=== PATIENT | female | born 1935 | race African-American/Black ===

== ENCOUNTER 2017-09-22 20:38 | Inpatient (IN) | payer OTHER ==
[~2017-09-22] VITALS: Ht 170.2 cm; Wt 77.1 kg
[2017-09-22] MEDS ORDERED: SODIUM CHLORIDE 0.9% 1,000 ML IV ONE (22:05)
[2017-09-22] MEDS ORDERED: ATOR10TA69 PO (22:20)
[2017-09-22] MEDS ORDERED: LETR2.5T6 PO (22:20)
[2017-09-22] MEDS ORDERED: LEVO50TA8 PO (22:20)
[2017-09-22] MEDS ORDERED: TRAZ-129 PO (22:20)
[2017-09-22] MEDS ORDERED: DONE10TA11 PO (22:20)
[2017-09-22 23:49] LABS: BASOPHILS % 0.4 % (0.0-2.0); EOSINOPHILS % 0.2 % (0.0-5.0); HEMATOCRIT. 40.3 % (36.0-48.0); HEMOGLOBIN. 13.4 g/dL (12.0-16.0); MEAN CORPUSCULAR HEMOGLOBIN 29.8 pg (28.0-32.0); MEAN CORPUSCULAR VOLUME 89.3 fL (81.0-99.0); MEAN PLATELET VOLUME 7.6 fl (7.4-10.4); MONOCYTES % 5.9 % (2.0-8.0); NEUTROPHILS % 81.5 % (40.0-76.0); PLATELET 280 x1000/uL (130-400); RED BLOOD CELL COUNT 4.52 mill/uL (4.2-5.4); RED CELL DISTRIBUTION WIDTH 13.8 % (11.6-14.6)
[2017-09-22 23:51] LABS: CHLORIDE 106 mEq/L (98-107)
[2017-09-22 23:52] LABS: PROTHROMBIN TIME 10.7 sec (9.4-11.6)
[2017-09-22 23:55] LABS: ETHANOL BLOOD < 10 mg/dL
[2017-09-23 03:10] VITALS: BP 131/69
[2017-09-23 04:00] VITALS: BP 130/85
[2017-09-23 07:26] VITALS: BP 160/61
[2017-09-23 10:02] LABS: BASOPHILS % 0.6 % (0.0-2.0); HEMATOCRIT. 43.6 % (36.0-48.0); HEMOGLOBIN. 14.3 g/dL (12.0-16.0); LYMPHOCYTES % 20.2 % (20.0-50.0); MEAN CORPUSCULAR HEMOGLOBIN 29.7 pg (28.0-32.0); MEAN CORPUSCULAR VOLUME 90.5 fL (81.0-99.0); MONOCYTES % 5.1 % (2.0-8.0); NEUTROPHILS % 73.1 % (40.0-76.0); RED BLOOD CELL COUNT 4.81 mill/uL (4.2-5.4)
[2017-09-23 10:22] LABS: CHLORIDE 107 mEq/L (98-107)
[2017-09-23 10:29] LABS: PLATELET 228 x1000/uL (130-400)
[2017-09-23 10:33] LABS: CREATINE KINASE 81 IU/L (26-192)
[2017-09-23 10:34] LABS: CREATINE KINASE MB FRACTION 2.3 ng/mL (0.5-3.6)
[2017-09-23] MEDS ORDERED: AMLODIPINE 5MG TABLET PO SCH (11:30)
[2017-09-23] MEDS ORDERED: DONEPEZIL HCL 10MG TABLET PO SCH (12:00)
[2017-09-23 12:20] VITALS: BP 120/56
[2017-09-23 16:28] VITALS: BP 131/70
[2017-09-23] MEDS ORDERED: TRAZODONE HCL 50MG TABLET PO SCH (17:00)
[2017-09-23 17:56] LABS: CREATINE KINASE 81 IU/L (26-192)
[2017-09-23 17:57] LABS: CREATINE KINASE MB FRACTION 1.6 ng/mL (0.5-3.6)
[2017-09-23 20:00] VITALS: BP 120/52
[2017-09-23] MEDS ORDERED: ATORVASTATIN CALCIUM 10MG TABLET PO SCH (21:00)
[2017-09-24] MEDS ORDERED: LEVOTHYROXINE SODIUM 50MCG TABLET PO SCH (06:45)
== END 2017-09-23 21:43 | disposition short-term general hospital (02) | DRG 74 ==
LOC: ER 20:55 → 5WST 22:08 → EDBEDREQ 23:55 → ENRESERV 09-23 02:06
PROVIDERS: ADMIT Internal Medicine; ATTEND Internal Medicine
DX: G90.8 Other disorders of autonomic nervous system (principal); G30.9 Alzheimer's disease, unspecified; F02.80 Dementia in other diseases classified elsewhere, unspecified severity, without behavioral disturbance, psychotic disturbance, mood disturbance, and anxiety; E03.9 Hypothyroidism, unspecified; E78.00 Pure hypercholesterolemia, unspecified; E78.5 Hyperlipidemia, unspecified; I10 Essential (primary) hypertension; Z90.10 Acquired absence of unspecified breast and nipple; Z79.899 Other long term (current) drug therapy
CPT/HCPCS: 36415; 70450; 71045; 80048; 80053; 80061; 82550; 82553; 83605; 83690; 83735; 83880; 84443; 84484; 85025; 85610; 93005; 93880; 96360; 96361; 97162; 99285; G0482; J7030; A4315

== ENCOUNTER 2018-06-22 20:38 | Inpatient (IN) | payer OTHER ==
[~2018-06-22] VITALS: Ht 160 cm; Wt 58.7 kg
[~2018-06-22 20:38] MED LIST: ATOR10TA69 PO; DONE10TA11 PO; LETR2.5T6 PO; LEVO50TA8 PO; TRAZ-212 PO
[2018-06-22] MEDS ORDERED: SODIUM CHLORIDE 0.9% 500 ML IV ONE (21:38)
[2018-06-22] MEDS ORDERED: HALOPERIDOL LACTATE 5MG/ML VIAL IM ONE (22:45)
[2018-06-22 23:51] LABS: BASOPHILS % 0.3 % (0.0-2.0); EOSINOPHILS % 0.3 % (0.0-5.0); HEMATOCRIT. 42.2 % (36.0-48.0); HEMOGLOBIN. 13.8 g/dL (12.0-16.0); LYMPHOCYTES % 14.5 % (20.0-50.0); MEAN CORPUSCULAR HEMOGLOBIN 29.7 pg (28.0-32.0); MEAN CORPUSCULAR VOLUME 91.1 fL (81.0-99.0); MEAN PLATELET VOLUME 7.5 fl (7.4-10.4); NEUTROPHILS % 76.9 % (40.0-76.0); PLATELET 254 x1000/uL (130-400); RED BLOOD CELL COUNT 4.63 mill/uL (4.2-5.4); RED CELL DISTRIBUTION WIDTH 13.9 % (11.6-14.6)
[2018-06-23] LABS: CHLORIDE 110 mEq/L (98-107)
[2018-06-23 02:30] VITALS: BP 153/84
[2018-06-23] MEDS ORDERED: ACETAMINOPHEN 325MG TABLET PO PRN (02:30)
[2018-06-23] MEDS ORDERED: NA PHOS,M-B/NA PHOS,DI-BA ENEMA 118ML PR PRN (02:30)
[2018-06-23] MEDS ORDERED: DOCUSATE SODIUM 100MG CAPSULE PO PRN (02:30)
[2018-06-23] MEDS ORDERED: CLONIDINE 0.1MG TABLET PO PRN (02:30)
[2018-06-23] MEDS ORDERED: ONDANSETRON HCL 4MG/2ML INJ IV PRN (02:30)
[2018-06-23] MEDS ORDERED: MAGNESIUM/ALUMINUM HYDROXIDE/SIMETHICONE 30ML UDC PO PRN (02:30)
[2018-06-23] MEDS ORDERED: GUAIFENESIN 200MG/10ML SUGAR FREE UDC PO PRN (02:30)
[2018-06-23] MEDS ORDERED: HYDROCODONE/ACETAMINOPHEN 5/325MG TABLET PO PRN (02:30)
[2018-06-23] MEDS ORDERED: LORAZEPAM 2MG/ML CPJ IV PRN (03:15)
[2018-06-23 08:00] VITALS: BP 127/68
[2018-06-23] MEDS ORDERED: ENOXAPARIN 40MG/0.4ML SYR SUBCUT SCH (09:00)
[2018-06-23] MEDS ORDERED: ASPIRIN 81MG EC TABLET PO SCH (09:00)
[2018-06-23] MEDS ORDERED: AMLODIPINE 10MG TABLET PO SCH (09:00)
[2018-06-23 10:04] VITALS: BP 127/68
== END 2018-06-23 10:40 | disposition home or self-care (01) | DRG 74 ==
LOC: ER 20:38 → EDBEDREQ 06-23 00:07 → 8WST 06-23 00:48 → EDBEDREQTM 06-23 00:49 → EDBEDREQ 06-23 00:49 → ENRESERV 06-23 01:43
PROVIDERS: ADMIT Hospitalist; ATTEND Hospitalist
DX: G90.8 Other disorders of autonomic nervous system (principal); E03.9 Hypothyroidism, unspecified; E78.00 Pure hypercholesterolemia, unspecified; F02.80 Dementia in other diseases classified elsewhere, unspecified severity, without behavioral disturbance, psychotic disturbance, mood disturbance, and anxiety; G30.9 Alzheimer's disease, unspecified; I10 Essential (primary) hypertension; Z79.899 Other long term (current) drug therapy
CPT/HCPCS: 36415; 71045; 74018; 83880; 84484; 93005; 93306; 96372; 99285; J1630; J1650; J2060; J7030; J7050

== ENCOUNTER 2018-06-27 14:58 | Emergency (ER) | payer OTHER ==
[~2018-06-27] VITALS: Ht 160 cm; Wt 60.0 kg
[2018-06-27] MEDS ORDERED: SODIUM CHLORIDE 0.9% 1,000 ML IV ONE (16:42)
[2018-06-27 17:27] LABS: CHLORIDE 106 mEq/L (98-107); HEMATOCRIT. 42.5 % (36.0-48.0); HEMOGLOBIN. 13.5 g/dL (12.0-16.0); MEAN CORPUSCULAR HEMOGLOBIN 29.2 pg (28.0-32.0); MEAN CORPUSCULAR VOLUME 91.7 fL (81.0-99.0); MEAN PLATELET VOLUME 7.9 fl (7.4-10.4); PLATELET 269 x1000/uL (130-400); RED BLOOD CELL COUNT 4.63 mill/uL (4.2-5.4); RED CELL DISTRIBUTION WIDTH 13.9 % (11.6-14.6)
[2018-06-27 18:02] LABS: PLATELET ESTIMATE NORMAL
[2018-06-27 18:54] LABS: CLARITY URINE CLEAR (CLEAR); COLOR URINE DARK YELLOW (YELLOW); KETONES URINE TRACE (NEGATIVE); LEUKOCYTE ESTERASE URINE NEGATIVE (NEGATIVE); NITRITE URINE NEGATIVE (NEGATIVE); OCCULT BLOOD URINE TRACE (NEGATIVE); PROTEIN URINE TRACE (NEGATIVE)
[2018-06-27 19:43] VITALS: BP 143/83
== END 2018-06-27 19:49 | disposition short-term general hospital (02) ==
LOC: ER 14:58 → CANBEDREQ 18:05 → ER 19:49
DX: G93.40 Encephalopathy, unspecified (principal); R55 Syncope and collapse; F03.90 Unspecified dementia, unspecified severity, without behavioral disturbance, psychotic disturbance, mood disturbance, and anxiety; E11.8 Type 2 diabetes mellitus with unspecified complications; E78.00 Pure hypercholesterolemia, unspecified; I10 Essential (primary) hypertension; E03.9 Hypothyroidism, unspecified; Z79.899 Other long term (current) drug therapy
CPT/HCPCS: 36415; 70450; 71045; 80053; 81003; 82962; 85025; 93005; 96360; 96361; 99285; J7030; P9612

== ENCOUNTER 2018-07-15 15:32 | Emergency (ER) | payer OTHER ==
[~2018-07-15] VITALS: Ht 162.6 cm; Wt 55.0 kg
[2018-07-15] MEDS ORDERED: ONDANSETRON HCL 4MG/2ML INJ IV STA (15:59)
[2018-07-15] MEDS ORDERED: SODIUM CHLORIDE 0.9% 1000ML BAG (SEPSIS BOLUS) IV ONE (16:00)
[2018-07-15] MEDS ORDERED: PIPERACILLIN/TAZ 3.375G PREMIX 50 ML IV ONE (16:00)
[2018-07-15 17:47] LABS: BASOPHILS % 0.3 % (0.0-2.0); EOSINOPHILS % 0.2 % (0.0-5.0); HEMATOCRIT. 39.3 % (36.0-48.0); HEMOGLOBIN. 12.8 g/dL (12.0-16.0); LYMPHOCYTES % 11.4 % (20.0-50.0); MEAN CORPUSCULAR HEMOGLOBIN 29.3 pg (28.0-32.0); MEAN CORPUSCULAR VOLUME 90.3 fL (81.0-99.0); MEAN PLATELET VOLUME 7.5 fl (7.4-10.4); MONOCYTES % 9.6 % (2.0-8.0); NEUTROPHILS % 78.5 % (40.0-76.0); PLATELET 395 x1000/uL (130-400); RED BLOOD CELL COUNT 4.36 mill/uL (4.2-5.4); RED CELL DISTRIBUTION WIDTH 13.5 % (11.6-14.6)
[2018-07-15 17:50] LABS: INR 1.1; PROTHROMBIN TIME 11.2 sec (9.1-11.1)
[2018-07-15 17:51] LABS: CHLORIDE 109 mEq/L (98-107)
[2018-07-15 18:38] LABS: CLARITY URINE CLOUDY (CLEAR); COLOR URINE YELLOW (YELLOW); KETONES URINE NEGATIVE (NEGATIVE); LEUKOCYTE ESTERASE URINE NEGATIVE (NEGATIVE); NITRITE URINE NEGATIVE (NEGATIVE); OCCULT BLOOD URINE NEGATIVE (NEGATIVE); PROTEIN URINE TRACE (NEGATIVE); SPECIFIC GRAVITY URINE 1.025 (1.005-1.030)
[2018-07-16 00:13] VITALS: BP 134/70
== END 2018-07-16 00:05 | disposition short-term general hospital (02) ==
LOC: ER 16:00 → CANRESERV 07-16 01:00 → ENRESERV 07-16 01:00 → CANBEDREQ 07-16 01:03
DX: A41.9 Sepsis, unspecified organism (principal); E87.2 Acidosis; R82.71 Bacteriuria; F03.90 Unspecified dementia, unspecified severity, without behavioral disturbance, psychotic disturbance, mood disturbance, and anxiety; E03.9 Hypothyroidism, unspecified; I10 Essential (primary) hypertension; E78.00 Pure hypercholesterolemia, unspecified; E11.9 Type 2 diabetes mellitus without complications; Z79.899 Other long term (current) drug therapy
CPT/HCPCS: 36415; 71045; 80053; 81003; 82962; 83605; 84145; 84484; 85025; 85610; 87040; 87086; 93005; 96365; 96366; 96375; 99291; C1893; J2405; J2543; J7030; P9612